=== PATIENT | male | born 1955 | race Caucasian/White ===

== ENCOUNTER → 2021-07-17 | Outpatient (CLI) | payer MEDICARE ==
--- NOTE | 2021-07-17 13:48 | RAD ---
XR CHEST 2V INDICATION: COPD, SHORT OF BREATH COMPARISON STUDY: 05/23/2016. FINDINGS: Lungs: Hyperexpanded lung volume. No pulmonary mass or consolidation. The tracheobronchial tree and h ilar structures are normal. Pleura: No pleural effusion or pneumothorax. Heart and Mediastinum: The cardiomediastinal silhouette is normal. The great vessels of the thorax ar e normal. Bones and Soft Tissues: Degenerative changes of the spine. IMPRESSION: No consolidation. Electronically signed by: Godfrey Whipple MD (07/17/2021 1:46 PM) [id number]
== END ==
LOC: PMG 12:47
PROVIDERS: ATTEND Nurse Practitioner Family
DX: J44.9 Chronic obstructive pulmonary disease, unspecified (principal); M47.814 Spondylosis without myelopathy or radiculopathy, thoracic region
CPT/HCPCS: 71046